=== PATIENT | female | born 1955 | race Caucasian/White ===

== ENCOUNTER → 2017-08-02 | Outpatient (CLI) | payer OTHER | LOC: FIMAGING 08:21 | PROVIDERS: ATTEND Obstetrics & Gynecology | DX: N83.202 Unspecified ovarian cyst, left side (principal); R93.8 Abnormal findings on diagnostic imaging of other specified body structures; Z78.0 Asymptomatic menopausal state ==

== ENCOUNTER → 2018-02-08 | Outpatient (CLI) | payer OTHER | LOC: BMCIMAGING 08:34 | PROVIDERS: ATTEND Family Medicine | DX: Z12.31 Encounter for screening mammogram for malignant neoplasm of breast (principal); Z80.3 Family history of malignant neoplasm of breast ==

== ENCOUNTER → 2018-02-09 | Outpatient (CLI) | payer OTHER | LOC: BMCIMAGING 10:39 | PROVIDERS: ATTEND Physician Assistant | DX: R92.1 Mammographic calcification found on diagnostic imaging of breast (principal) ==

== ENCOUNTER → 2018-03-15 | Day surgery (SDC) | payer OTHER ==
[~2018-03-15] MED LIST: BUPIVACAINE 0.5% 30 ML SDV ONE; LIDOCAINE 1% 300 MG/30 ML SDV ONE; THROMBIN (BOVINE) 5,000 UNIT VIAL TP ONE
== END | disposition home or self-care (01) ==
LOC: FIMAGING 07:18
PROVIDERS: ATTEND Physician Assistant
PROC: 0HBU3ZX Excision of Left Breast, Percutaneous Approach, Diagnostic (ICD-10-PCS; principal; 2018-03-15)
DX: D05.02 Lobular carcinoma in situ of left breast (principal); N60.12 Diffuse cystic mastopathy of left breast; N60.92 Unspecified benign mammary dysplasia of left breast

== ENCOUNTER → 2018-04-10 | Outpatient (CLI) | payer OTHER ==
[~2018-04-10] MED LIST changes: -BUPIVACAINE 0.5% 30 ML SDV ONE; +GADOBUTROL 10 ML VIAL IVP ONE; -LIDOCAINE 1% 300 MG/30 ML SDV ONE; -THROMBIN (BOVINE) 5,000 UNIT VIAL TP ONE
== END ==
LOC: FIMAGING 11:34
PROVIDERS: ATTEND Surgery
DX: D05.02 Lobular carcinoma in situ of left breast (principal)
CPT/HCPCS: 0159T; 77059; A9585; C8908

== ENCOUNTER → 2018-04-17 | Day surgery (SDC) | payer OTHER ==
[~2018-04-17] MED LIST changes: -GADOBUTROL 10 ML VIAL IVP ONE; +LIDOCAINE 1% 300 MG/30 ML SDV ONE
== END | disposition home or self-care (01) ==
LOC: FIMAGING 07:18
PROVIDERS: ATTEND Surgery
PROC: 0HHT3YZ Insertion of Other Device into Right Breast, Percutaneous Approach (ICD-10-PCS; principal; 2018-04-17)
DX: D05.02 Lobular carcinoma in situ of left breast (principal)